=== PATIENT | male | born 1970 | race Two or more races ===

== ENCOUNTER 2025-08-07 01:59 | Emergency (ER) | payer OTHER ==
[~2025-08-07] VITALS: Ht 172.7 cm; Wt 95.3 kg
[~2025-08-07 01:59] MED LIST: ACIDOPHILUS1 EAC3 PO; IBUPROFEN800 MG PO; KETO10TA2 PO; NORFLEX100MG PO; ORPH100T PO; VASOTEC5 MG PO; ZANTAC150 MG PO
[2025-08-07] MEDS ORDERED: PRILOSEC OTC20 MG PO (02:22)
[2025-08-07 02:25] VITALS: BP 125/67; O2SAT 97
[2025-08-07] MEDS ORDERED: KETOROLAC TROMETHAMINE 30 MG VIAL IV STA (05:20)
[2025-08-07] MEDS ORDERED: HYOSCYAMINE SULFATE 0.125 MG TAB.SUBL ONE (05:26)
[2025-08-07] MEDS ORDERED: KETOROLAC TROMETHAMINE 30 MG VIAL ONE (05:26)
[2025-08-07] MEDS ORDERED: 0.9 % SODIUM CHLORIDE 1,000 ML IV ONE (05:30)
[2025-08-07] MEDS ORDERED: HYOSCYAMINE SULFATE 0.125 MG TAB.SUBL SL ONE (05:30)
[2025-08-07 06:25] LABS: BASO % 0.3 % (0.1-1.2); EOS # 0.30 (0.04-0.54); EOS % 3.5 % (0.7-7.0); LYMPH # 1.56 (1.18-3.74); LYMPH % 18.1 % (19.3-53.1); MEAN PLATELET VOLUME 10.30 fl (9.4-12.4); MONO # 0.67 (0.24-0.82); MONO % 7.8 % (4.7-12.5); NEUT # 6.02 (1.56-6.13); NEUT % 70.0 % (34.0-71.1); RED CELL DISTRIBUTION WIDTH 11.9 % (11.6-14.4)
[2025-08-07 06:44] LABS: URINE APPEARANCE Clear; URINE BILIRRUBIN Negative (NEGATIVE); URINE BLOOD Negative; URINE COLOR Yellow; URINE GLUCOSE Negative (NEGATIVE); URINE KETONE Negative (NEGATIVE); URINE LEUKOCYTE Negative; URINE NITRATE Negative; URINE PROTEIN Negative (NEGATIVE); URINE UROBILINOGEN 0.2 E.U./dl
[2025-08-07 06:49] LABS: URINE WBC 5.0 uL (0.0-23.2)
[2025-08-07 06:50] LABS: INR 0.99
[2025-08-07 06:52] LABS: URINE BACTERIA 1.1 uL (0.0-1933); URINE CAST 0.29 uL (0.0-1.40); URINE EPITHELIAL CELLS 0.9 uL (0.0-38.8); URINE RBC 0.5 uL (0.0-20.8)
[2025-08-07 06:59] LABS: ALT/SGPT 69.0 U/L (12-78); AST/SGOT 33.0 U/L (15-37); BILIRUBIN TOTAL 0.46 mg/dL (0.3-1.2); BUN CREA RATIO 20.0 (7.0-25.0); CREATININE SERUM 0.74 mg/dL (0.70-1.30); GFR 110.64; GLOBULINA 4.0 G/DL (2.4-3.5); GLUCOSE FASTING 122.0 mg/dL (65-100); OSMOLALITY SERUM 282.0 MOSM/KG (275-295)
[2025-08-07] MEDS ORDERED: CIPROFLOXACIN IN 5 % DEXTROSE 400 MG/200 ML PIGGYBAG IV STA (09:41)
[2025-08-07] MEDS ORDERED: METRONIDAZOLE/SODIUM CHLORIDE 500 MG/100 ML PIGGYBACK IV STA (09:41)
[2025-08-07] MEDS ORDERED: METRONIDAZOLE/SODIUM CHLORIDE 500 MG/100 ML PIGGYBACK IV ONE (09:43)
[2025-08-07] MEDS ORDERED: CIPROFLOXACIN IN 5 % DEXTROSE 400 MG/200 ML PIGGYBAG IV ONE ×2 (09:43→09:44)
== END 2025-08-07 12:02 | disposition home or self-care (01) ==
LOC: ER 01:59
PROVIDERS: General Practice
DX: K57.32 Diverticulitis of large intestine without perforation or abscess without bleeding (principal); K44.9 Diaphragmatic hernia without obstruction or gangrene; I10 Essential (primary) hypertension; Z91.018 Allergy to other foods